=== PATIENT | female | born 1975 | race Caucasian/White ===

== ENCOUNTER 2018-09-09 07:21 | Observation (INO) | payer OTHER, SELFPAY ==
[2018-09-09] VITALS (13 sets, daily range): BP systolic 158–185; BP diastolic 92–107; PULSE 67–79; RESP 14–17; TEMP 36.3–36.8; O2SAT 96–99; BMI 52.0; BMI 52.4
--- NOTE | 2018-09-09 07:38 | RAD_ITS ---
STUDY: X-RAY CHEST REASON FOR EXAM: Female, 43 years old. Left-sided upper extremity weakness. TECHNIQUE: Single AP portable view of the chest. COMPARISON: None. FINDINGS: EKG electrodes are seen. The lungs are clear and expanded. There is no demonstrated pleural abnormality. Normal size heart. Normal mediastinum and dolly. Normal visualized pulmonary arteries. Normal visualized aortic arch and descending thoracic aorta. Normal visualized thoracic spine. Normal visualized ribs, clavicles, and shoulders. There is no demonstrated abnormality of the visualized soft tissue structures of the upper abdomen. RAD/Chest 1 View IMPRESSION: Normal x-ray examination of the chest. Electronically Signed: Bear Vu, at 9:09 EDT , Service support ,
--- NOTE | 2018-09-09 07:38 | CT_ITS ---
STUDY: CTA NECK WITH CONTRAST REASON FOR EXAM: Female, 43 years old. RADIATION DOSAGE (If Supplied By Facility): CTDIvol = ( 28.42 ) mGy, DLP = ( 1599.63 ) mGycm TECHNIQUE: CT angiography with multi-detector data acquisition was performed from the aortic arch to the skull base following intravenous administration of 100 IV Isovue 370. MIP images were reconstructed from the axial data set. Post-processing of the angiographic images was performed, with multiplanar reformation and 3D reconstruction. Individualized dose optimization techniques were used for this CT. COMPARISON: None. FINDINGS: There is a 1.4 cm x 1.4 cm hypodense nodule with peripheral calcification in the right lobe of thyroid. AORTIC ARCH: Normal visualized aortic arch. Normal origins of the brachiocephalic, left common carotid, and left subclavian arteries. RIGHT CAROTID ARTERIES: Normal right common carotid artery (CCA). Normal right common carotid bulb. Normal origin of the right internal carotid (ICA) artery without a hemodynamically significant stenosis. Normal visualized cervical portion of the right internal carotid artery. Normal origin of the right external carotid artery (ECA). LEFT CAROTID ARTERIES: Normal left common carotid artery (CCA). Normal left common carotid bulb. Normal origin of the left internal carotid (ICA) artery without a hemodynamically significant stenosis. Normal visualized cervical portion of the left internal carotid artery. Normal origin of the left external carotid artery (ECA). VERTEBRAL ARTERIES: Normal bilateral vertebral arteries. CT/CTA Neck W/WO Contrast IMPRESSION: Normal bilateral cervical carotid and vertebral arteries. Electronically Signed: Bear Vu, at 9:09 EDT , Service support ,
--- NOTE | 2018-09-09 07:38 | EKG12_ITS ---
Test Reason : NEURO SX Blood Pressure : / mmHG Vent. Rate : 066 BPM Atrial Rate : 066 BPM P-R Int : 156 ms QRS Dur : 100 ms QT Int : 420 ms P-R-T Axes : 023 021 014 degrees QTc Int : 440 ms Normal sinus rhythm Normal ECG Confirmed by MARIAN BA ([id number]), editor producer CHING YODER ([id number]) on 09/11/2018 8:42:59 AM Referred By: JAKOB Confirmed By:MARIAN BA
--- NOTE | 2018-09-09 07:38 | CT_ITS ---
STUDY: CTA OF THE BRAIN REASON FOR EXAM: Female, 43 years old. One-month history of a numbness and weakness. Difficulty with speech. RADIATION DOSAGE (If Supplied By Facility): CTDIvol = ( 28.42 ) mGy, DLP = ( 1599.63 ) mGycm TECHNIQUE: CT angiography was performed with a multi-detector CT scanner. Data acquisition was obtained from the skull base through the vertex following intravenous administration of 100 IV Isovue 370. MIP images were reconstructed from the axial data set. Post-processing of the angiographic images was performed, with multiplanar reformation and 3D reconstruction. Individualized dose optimization techniques were used for this CT. COMPARISON: None. FINDINGS: There is a 1 cm x 1.3 cm hypodense nodule with peripheral calcification in the right lobe of the thyroid gland. Normal bilateral petrous carotid arteries. There is calcified plaque formation of the right cavernous carotid artery, without a cross-sectional luminal stenosis. Normal left cavernous carotid artery with a normal supraclinoid bifurcation. Normal right A1 segments of the anterior cerebral artery. Normal left A1 segments of the anterior cerebral artery. Normal intact anterior communicating artery (ACOM). Normal bilateral A2 segments of the anterior cerebral arteries. Normal right M1 and M2 segments of the middle cerebral arteries, with a normal M1 bifurcation. Normal left M1 and M2 segments of the middle cerebral arteries, with a normal M1 bifurcation. Normal right posterior communicating artery (PCOM). Normal left posterior communicating artery (PCOM). Normal bilateral vertebral arteries. Normal basilar artery with a normal basilar bifurcation. The visualized bilateral superior cerebellar (SCA) arteries are normal. Normal bilateral P1, P2 and visualized P3 segments of the posterior cerebral arteries. There is no demonstrated aneurysm of the [place]. There is no demonstrated abnormality of the visualized brain. IMPRESSION: Normal [place] without a demonstrated aneurysm or hemodynamically significant stenosis. Electronically Signed: Bear Vu, at 9:07 EDT , Service support , STUDY: CT BRAIN WITHOUT CONTRAST REASON FOR EXAM: Female, 43 years old. Numbness and weakness. Slurred speech. RADIATION DOSAGE (If Supplied By Facility): CTDIvol = ( 25 ) mGy, DLP = ( 1599.63 ) mGycm TECHNIQUE: Transaxial CT imaging of the brain was performed without administration of intravenous contrast material. Individualized dose optimization techniques were used for this CT. COMPARISON: No relevant priors. FINDINGS: Normal soft tissue structures. Normal calvarium. Normal size ventricles and extra-axial spaces for the patient's age. Normal white matter tracts of the cerebral hemispheres. Normal basal ganglia and thalami. Normal brainstem. Normal cerebellum. There is no intracranial hemorrhage. There are no findings of an acute ischemic infarction. Normal visualized paranasal sinuses. CT/CTA Head W/WO Contrast IMPRESSION: Normal unenhanced CT scan of the brain. Electronically Signed: Bear Vu, at 9:07 EDT , Service support ,
--- NOTE | 2018-09-09 07:40 | ED.RN ---
pt reports intermittent sx for about a month. difficulty speeaking/getting worsd out states i know what i want to say but its like my tongue isnt working. last night started with left arm heaviness, feels swollen per pt and harder to use.
[2018-09-09 07:55] LABS: Bedside Glucose 118 mg/dL (70-110)
[2018-09-09 08:01] LABS: Absolute Lymphocyte Count 2.05 X10^3/ul (0.83-4.51); Absolute Neutrophil Count 4.3 X10^3/uL (2.0-7.7); Basophil# 0.04 X10^3/uL; Basophil% 0.6 % (0-1); Eosinophils% 4.2 % (0-5); Hematocrit 40.2 % (37-47); Hemoglobin 13.2 g/dl (12.0-15.0); Lymphocyte # 2.05 X10^3/ul (4.0); Lymphocyte % 28.7 % (19-41); Mean Corp Hgb Conc 32.8 g/gl (32-36); Mean Corpuscular Hgb 28.2 pg (27.0-32.0); Mean Corpuscular Volume 85.9 fL (81-99); Mean Platelet Vol. 10.5 fl (6.2-12.0); Monocyte# 0.45 X10^3/uL; Monocyte% 6.3 % (0-10); Neutrophil # 4.29 X10^3/uL (2.7-7.7); Neutrophil % 60.1 % (47-70); Platelet Count 225 K/mm3 (150-450); RBC Distribution Width CV 14.3 % (11.6-14.6); RBC Distribution Width SD 44.9 fl (35.1-43.9); Red Blood Count 4.68 M/mm3 (4.2-5.4); White Blood Count 7.1 K/mm3 (4.4-11.0)
[2018-09-09 08:02] LABS: POSITIVE COUNT NO; POSITIVE DIFFERENTIAL NO; POSITIVE MORPHOLOGY NO
[2018-09-09 08:08] LABS: Prothrombin Time (Protime)PT. 13.1 SECONDS (11.7-14.9)
[2018-09-09 08:18] LABS: Anion Gap 6 (5-15); BUN 15 mg/dL (7-18); BUN/Creat Ratio 24.4 RATIO (10-20); Calcium,Total 8.1 mg/dL (8.5-10.1); Chloride 106 mmol/L (98-107); Creatinine, Serum 0.61 mg/dL (0.55-1.02); EST Glomerular Filtration Rate 112 mL/min (>60); Est Glom Filt Rate - Afr Amer 135 mL/min (>60); Estimated Creatinine Clearance 87.88 ml/min; Glucose 127 mg/dL (74-106); Potassium 3.8 mmol/L (3.5-5.1); Sodium Level 138 mmol/L (136-145)
--- NOTE | 2018-09-09 09:01 | ED.DCSUM_ITS ---
- ER Visit Summary Date of Service: 09/09/18 Chief Complaint: [Weakness left arm and difficulty with speech] History of Present Illness: The patient is a 43 F [presents the emergency department with symptoms that have worsened since last evening. Patient states that actually over the course the last month she has had symptoms off and on of left arm numbness and weakness intermittently. Patient states at times it feels like her tongue gets really thick and she can see the words that she is thinking of. She denies any falls or head injuries. She denies any vision changes. Patient does complain of numbness to the left hand. She denies any chest pain or shortness of breath. She has minimal headache at this time. No history of migraines. Patient does have history of hypertension.] Physical Examination: [HEENT-PERRLA, EOMI. Cranial nerves II through XII grossly intact. TMs clear. Mucous membranes moist. No adenopathy. Cardiovascular-regular rate and rhythm without murmur or ectopy Lungs-clear to auscultation, chest wall stable without crepitus or subcu emphysema Abdomen-normoactive bowel sounds, soft, nontender, no rebound or rigidity, no peritoneal signs. Neuro exam-NIH stroke scale was a 1 due to some decreased sensation to the left arm compared to the right. [id number] and heel ramon testing within normal limits, negative Romberg, negative pronator, fundi benign. Extremities-intact ?4, normal range of motion, normal pulses, atraumatic] Test Results: [EKG obtained arrival shows sinus rhythm with a ventricular rate of 66 bpm with no acute ST segment changes. CBC with differential is normal. Chemistries normal. Troponin less than 0.015. INR was 1.0. PTT was 24.] CT of the brain without contrast was unremarkable. CTA of the head and neck was normal. Emergency Department Course and Treatment: [Patient will be admitted for further work-up and evaluation of her symptoms. Cannot rule out TIA versus complex migraine versus MS versus hypertension related symptoms versus other.] Treatment Plan: [Admit] Disposition: [Admit] Impression: [TIA Paresthesias] This note was generated with [employer] software. It may contain incorrect words, spelling, and punctuation that were not noted in review of the chart prior to signing ED Disposition - Plan for ED Patient: Referrals: Eddie Pearson MD [Primary Care Provider] -
--- NOTE | 2018-09-09 09:50 | ECHOD_ITS ---
Reason For Study: TIA/CVA Procedure This was a 2D Doppler, Color Flow transthoracic echocardiogram. The exam was of adequate technical quality. Exam performed portable in patient room. Left Ventricle Normal LV size. Left ventricular systolic function is normal. The estimated ejection fraction is 60 %. No evidence for diastolic dysfunction. No regional wall motion abnormalities noted. Right Ventricle Normal RV size. Normal systolic function. Atria The left atrium is mildly enlarged. Normal right atrium. No doppler evidence for ASD. Bubble contrast study negative for right to left interatrial shunt. Mitral Valve There is no mitral annular calcification. Normal mitral valve. Mild (1+) mitral valve insufficiency. Tricuspid Valve Normal tricuspid valve. Trivial tricuspid valve insufficiency. Aortic Valve Trisinus/trileaflet aortic valve. Normal aortic valve. Pulmonic Valve The pulmonic valve is not well visualized. Trivial pulmonic valve insufficiency. Great Vessels Normal sized aortic root. Pericardium/Pleural No pericardial effusion. Medication Performed a rapid injection of agitated mix of 9 cc saline and 1cc air to assess for atrial septal defect. MMode/2D Measurements & Calculations LVIDd: 5.0 cm IVSd: 1.2 cm Ao root diam: 3.1 cm LVIDs: 3.6 cm LVPWd: 1.2 cm RVDd: 3.5 cm FS: 28.5 % LAV(MOD-bp): 89.6 ml LA A4 area: 24.9 cm2 LA dimension(2D): 4.0 cm LAV(MOD-bp) Indexed: 41.4 ml/m2 LAV(MOD-sp2): 88.8 ml LAV(MOD-sp4): 87.9 ml RA A4 area: 16.4 cm2 Time Measurements MV dec time: 0.20 sec Doppler Measurements & Calculations MV E max dominic: 93.4 cm/sec Lat Peak E' Dominic: 13.9 cm/sec Med Peak E' Dominic: 9.1 cm/sec MV A max dominic: 72.4 cm/sec E/E' lat: 6.7 E/E' med: 10.2 MV E/A: 1.3 Ao V2 max: 143.3 cm/sec LV V1 max: 111.8 cm/sec PA V2 max: 93.0 cm/sec Ao max P.2 mmHg LV V1 max P.0 mmHg Interpretation Summary Left ventricular systolic function is normal. The estimated ejection fraction is 60 %. The left atrium is mildly enlarged. Mild (1+) mitral valve insufficiency. Trivial tricuspid valve insufficiency. Trivial pulmonic valve insufficiency. No evidence for diastolic dysfunction. Ordering Physician: Maximino Gonzalez Referring Physician: Eddie Pearson Performed By: Sully Toscano RDCS, RVT
[2018-09-09] MEDS: Aspirin 325 MG Tablet PO (10:50)
--- NOTE | 2018-09-09 11:17 | MRI_ITS ---
We are attempting to reach an attending provider to discuss findings. An addendum with communication details will be sent when the communication is complete. STUDY: MRI BRAIN WITH AND WITHOUT CONTRAST REASON FOR EXAM: Female, 43 years old. Left sided weakness and slurred speech TECHNIQUE: Standardized multiplanar fat and water weighted pulse sequences were obtained. 25 IV Dotarem was administered for the contrast portion of the examination. COMPARISON: None. FINDINGS: There are multiple regions of restricted diffusion throughout the right frontal, parietal and posterior lateral occipital lobes cortical and subcortical white matter, the largest of these is in the right occipital lobe measuring approximately 2.2 x 2.6 cm. There is corresponding FLAIR signal hyperintensity. These all correspond to the right MCA vascular distribution. Normal size of the ventricles and extra-axial spaces for the patient's age. Normal white matter tracts of the supratentorial brain. Normal T2* images of the brain without demonstrated susceptibility artifact. There is no demonstrated hemosiderin stain. Normal bilateral basal ganglia. Normal thalami. There is no extra-axial fluid accumulation. Normal flow voids within the major intracranial circulation suggesting patency by spin echo criteria. Normal venous enhancement. There is no enhancing intra-axial or extra-axial abnormality. Normal sella turcica, pituitary gland, infundibular stalk, optic chiasm and hypothalamus. Normal tectal plate and pineal gland. Normal midbrain, rachel and medulla. Normal cerebellum. Normal basal cisterns. Normal bilateral temporal bones. Normal bilateral internal auditory canals. No demonstrated orbital abnormality, within the constraints of a routine brain study. Normal visualized paranasal sinuses. Normal calvarium and skull base. Normal visualized soft tissue structures. Normal visualized upper cervical spine. 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 Question A. fib. No enhancing abnormality. Electronically Signed: Helena France, at 15:18 EDT Tel , Service support ,
--- NOTE | 2018-09-09 11:18 | PCM.HP.STD ---
Problem List (1) Left-sided weakness Status: Acute History of Present Illness Date of Admission: 09/09/18 Chief Complaint: left sided weakness. garbled speech. The patient is a 43 year old F who over the past month has been having intermittent left-sided weakness and garbled speech. Last night it was much more pronounced and did persist until today. Patient was just unable to speak, knowing the words that she would need to speak when unable to actually articulate them. Patient was left-sided weakness in her left arm and leg. Denies any concomitant headache. Was evaluated emergency room, underwent CAT scans that were unremarkable. The hospitalist service was asked to evaluate the patient for further stroke evaluation. [] Past Medical History Allergies No Known Allergies Allergy (Verified 09/09/18 07:22) Surgical History: no surgical history Psychiatric History: No pertinent psych hx Lives: Spouse/ Significant Other Smoking Status: Never smoker Tobacco Use: Non-smoker Alcohol: None - *Family History Maternal History Items: - - No stroke Review of Systems Constitutional: Denies: Anorexia, Chills, Fever Eyes: Denies: Blurred vision, Double vision HEENT: Denies: Head Aches, Sinus Congestion, Sinus Drainage Cardiovascular: Denies: Chest Pain, Palpitations Respiratory: Denies: Cough, Shortness of breath at rest, Sputum production Gastrointestinal: Denies: Abdominal Pain, Nausea, Vomiting Genitourinary: Denies: Dysuria Musculoskeletal: Denies: Joint Pain, Joint Tenderness Skin: Denies: Rash, Wounds Neurological: Reports: Focal weakness, Numbness, Tingling Psychiatric: Denies: Anxiety, Depression Hematologic/ Lymphatic: Denies: Easy Bruising, Easy Bleeding, Hx of blood clot Comment: A 10 point review of systems were negative except as mentioned in the history of present illness and the other review of systems. VTE Information - Inpt Only VTE Present on Admission: No VTE Mechan Device Prophylaxis: None VTE Pharm Prophylaxis ordered?: No Reason prophylaxis not ordered:: Procedure Not Indicated Patient Problems: Active and Suspected Problems Left-sided weakness (Acute) - Physical Exam General: Alert, Cooperative, No apparent distress HEENT: Atraumatic, Normocephalic Oral: Moist Mucosa, No Gingival or Mucosal Lesions/ Ulcerations Neck: No Nodes, Thyroid Normal Size and Texture Cardiovascular: Regular rate, Regular Rhythm, Normal S1, Normal S2, No murmurs Abdomen: Bowel Sounds Present, Soft, Non Tender, Non-Distended, Obese Extremities: No clubbing, No edema, No Calf Tenderness Skin: No rashes, No breakdown Musculoskeletal: No Tenderness to Palpation of Joints or Extremities, No Muscle Wasting Neurological: Cranial nerves II-XII grossly intact, - - Muscle strength 5-5 in right upper and right lower extremity, 4-5 in the left upper and left lower extremity. Ataxia with the left upper extremity. Coordination intact in the right upper extremity. Psych/Mental Status: Normal Affect, Appropriate Vital Signs Temp Pulse Resp BP Pulse Ox 36.6 C 67 16 160/92 H 99 09/09/18 10:01 09/09/18 10:01 09/09/18 10:01 09/09/18 10:09/09/18 10:01 Oxygen Delivery Method Room Air Weight: 125.9 kg Body Mass Index (BMI) 52.4 Finger Stick Blood Glucose 118 Laboratory Tests Past 24 Hrs 09/09/18 09/09/18 09/09/18 07:35 07:35 07:35 WBC 7.1 RBC 4.68 Hgb 13.2 Hct 40.2 MCV 85.9 MCH 28.2 MCHC 32.8 RDW 14.3 RDW Differential 44.9 H Plt Count 225 MPV 10.5 Immature Gran % (Auto) 0.100 Neut % (Auto) 60.1 Lymph % (Auto) 28.7 [place] % (Auto) 6.3 Eos % (Auto) 4.2 Baso % (Auto) 0.6 Absolute Neuts (auto) 4.3 Absolute Lymphs (auto) 2.05 Total Counted Not Reportable PT 13.1 INR 1.0 APTT 24.0 L Sodium 138 Potassium 3.8 Chloride 106 Carbon Dioxide 26.0 Anion Gap 6 BUN 15 Creatinine 0.61 Estim Creat Clear Calc 87.88 Est GFR (MDRD) Af Amer 135 Est GFR (MDRD) Non-Af 112 BUN/Creatinine Ratio 24.4 H Glucose 127 H Calcium 8.1 L Troponin I < 0.015 POC Glucose 09/09/18 07:49 POC Glucose 118 H Clinical Impression(s) from Imaging Studies Chest X-Ray 09/09/18 07:38 IMPRESSION: Normal x-ray examination of the chest. Electronically Signed: Bear Vu, at 9:09 EDT , Service support , Head CTA 09/09/18 07:38 IMPRESSION: Normal unenhanced CT scan of the brain. Electronically Signed: Bear Vu, at 9:07 EDT , Service support , Neck CTA 09/09/18 07:38 IMPRESSION: Normal bilateral cervical carotid and vertebral arteries. Electronically Signed: Bear Vu, at 9:09 EDT , Service support , Assessment/Plan All Active Problems Left-sided weakness (Acute) 1. Left her upper and lower extremity weakness, expressive aphasia. Concern is for a stroke Had CTA and neck CTA were unremarkable. Patient will have an MRI of the brain with and without contrast, 2D echocardiogram, physical, occupational and speech therapies. Await on final results of the MRI and patient's overall clinical picture before proceeding with additional studies or consultations. Symptoms have been waxing and waning without any obvious etiology. Patient is not endorsing any headaches so unlikely a migraine variant. 2. Hypertension: Unclear if this is chronic process or acute trigger if she would have a stroke in order to maintain a higher cerebral perfusion pressure. Monitor for now. 3. VTE prophylaxis: Low risk and not indicated as patient under observation status and length hospitalization anticipated be less than 48 hours. If that does change later point then VT prophylaxis will be initiated to give her risk profile changes. Code Visit OBSV E&M: 60351 Initial observation care L3
--- NOTE | 2018-09-09 11:23 | HP.PCM_ITS ---
Problem List (1) Left-sided weakness Status: Acute History of Present Illness Date of Admission: 09/09/18 Chief Complaint: left sided weakness. garbled speech. The patient is a 43 year old F who over the past month has been having intermittent left-sided weakness and garbled speech. Last night it was much more pronounced and did persist until today. Patient was just unable to speak, knowing the words that she would need to speak when unable to actually articulate them. Patient was left-sided weakness in her left arm and leg. Denies any concomitant headache. Was evaluated emergency room, underwent CAT scans that were unremarkable. The hospitalist service was asked to evaluate the patient for further stroke evaluation. [] Past Medical History Allergies No Known Allergies Allergy (Verified 09/09/18 07:22) Surgical History: no surgical history Psychiatric History: No pertinent psych hx Lives: Spouse/ Significant Other Smoking Status: Never smoker Tobacco Use: Non-smoker Alcohol: None - *Family History Maternal History Items: - - No stroke Review of Systems Constitutional: Denies: Anorexia, Chills, Fever Eyes: Denies: Blurred vision, Double vision HEENT: Denies: Head Aches, Sinus Congestion, Sinus Drainage Cardiovascular: Denies: Chest Pain, Palpitations Respiratory: Denies: Cough, Shortness of breath at rest, Sputum production Gastrointestinal: Denies: Abdominal Pain, Nausea, Vomiting Genitourinary: Denies: Dysuria Musculoskeletal: Denies: Joint Pain, Joint Tenderness Skin: Denies: Rash, Wounds Neurological: Reports: Focal weakness, Numbness, Tingling Psychiatric: Denies: Anxiety, Depression Hematologic/ Lymphatic: Denies: Easy Bruising, Easy Bleeding, Hx of blood clot Comment: A 10 point review of systems were negative except as mentioned in the history of present illness and the other review of systems. VTE Information - Inpt Only VTE Present on Admission: No VTE Mechan Device Prophylaxis: None VTE Pharm Prophylaxis ordered?: No Reason prophylaxis not ordered:: Procedure Not Indicated Patient Problems: Active and Suspected Problems Left-sided weakness (Acute) - Physical Exam General: Alert, Cooperative, No apparent distress HEENT: Atraumatic, Normocephalic Oral: Moist Mucosa, No Gingival or Mucosal Lesions/ Ulcerations Neck: No Nodes, Thyroid Normal Size and Texture Cardiovascular: Regular rate, Regular Rhythm, Normal S1, Normal S2, No murmurs Abdomen: Bowel Sounds Present, Soft, Non Tender, Non-Distended, Obese Extremities: No clubbing, No edema, No Calf Tenderness Skin: No rashes, No breakdown Musculoskeletal: No Tenderness to Palpation of Joints or Extremities, No Muscle Wasting Neurological: Cranial nerves II-XII grossly intact, - - Muscle strength 5-5 in right upper and right lower extremity, 4-5 in the left upper and left lower extremity. Ataxia with the left upper extremity. Coordination intact in the right upper extremity. Psych/Mental Status: Normal Affect, Appropriate Vital Signs Temp Pulse Resp BP Pulse Ox 36.6 C 67 16 160/92 H 99 09/09/18 10:01 09/09/18 10:01 09/09/18 10:01 09/09/18 10:09/09/18 10:01 Oxygen Delivery Method Room Air Weight: 125.9 kg Body Mass Index (BMI) 52.4 Finger Stick Blood Glucose 118 Laboratory Tests Past 24 Hrs 09/09/18 09/09/18 09/09/18 07:35 07:35 07:35 WBC 7.1 RBC 4.68 Hgb 13.2 Hct 40.2 MCV 85.9 MCH 28.2 MCHC 32.8 RDW 14.3 RDW Differential 44.9 H Plt Count 225 MPV 10.5 Immature Gran % (Auto) 0.100 Neut % (Auto) 60.1 Lymph % (Auto) 28.7 [place] % (Auto) 6.3 Eos % (Auto) 4.2 Baso % (Auto) 0.6 Absolute Neuts (auto) 4.3 Absolute Lymphs (auto) 2.05 Total Counted Not Reportable PT 13.1 INR 1.0 APTT 24.0 L Sodium 138 Potassium 3.8 Chloride 106 Carbon Dioxide 26.0 Anion Gap 6 BUN 15 Creatinine 0.61 Estim Creat Clear Calc 87.88 Est GFR (MDRD) Af Amer 135 Est GFR (MDRD) Non-Af 112 BUN/Creatinine Ratio 24.4 H Glucose 127 H Calcium 8.1 L Troponin I < 0.015 POC Glucose 09/09/18 07:49 POC Glucose 118 H Clinical Impression(s) from Imaging Studies Chest X-Ray 09/09/18 07:38 IMPRESSION: Normal x-ray examination of the chest. Electronically Signed: Bear Vu, at 9:09 EDT , Service support , Head CTA 09/09/18 07:38 IMPRESSION: Normal unenhanced CT scan of the brain. Electronically Signed: Bear Vu, at 9:07 EDT , Service support , Neck CTA 09/09/18 07:38 IMPRESSION: Normal bilateral cervical carotid and vertebral arteries. Electronically Signed: Bear Vu, at 9:09 EDT , Service support , Assessment/Plan All Active Problems Left-sided weakness (Acute) 1. Left her upper and lower extremity weakness, expressive aphasia. * Concern is for a stroke * Had CTA and neck CTA were unremarkable. * Patient will have an MRI of the brain with and without contrast, 2D echocardiogram, physical, occupational and speech therapies. * Await on final results of the MRI and patient's overall clinical picture before proceeding with additional studies or consultations. * Symptoms have been waxing and waning without any obvious etiology. Patient is not endorsing any headaches so unlikely a migraine variant. 2. Hypertension: Unclear if this is chronic process or acute trigger if she would have a stroke in order to maintain a higher cerebral perfusion pressure. Monitor for now. 3. VTE prophylaxis: Low risk and not indicated as patient under observation status and length hospitalization anticipated be less than 48 hours. If that does change later point then VT prophylaxis will be initiated to give her risk profile changes. Code Visit OBSV E&M: 94374 Initial observation care L3
[2018-09-09] MEDS: Atorvastatin Calcium 80 MG Tablet PO (21:32)
[2018-09-10] VITALS (10 sets, daily range): BP systolic 145–171; BP diastolic 81–92; PULSE 65–81; RESP 14–16; TEMP 36.6–36.9; O2SAT 96–100; BMI 52.4
[2018-09-10] MEDS: 0.9% NaCl Peripheral Flush Adult/Peds IV (05:34)
[2018-09-10 06:48] LABS: Cholesterol 160 mg/dL (200); High Density Lipoprotein 52 mg/dL; Triglycerides 98 mg/dL; Very Low Density Lipoprotein 20 mg/dL (5-40)
[2018-09-10] MEDS: Aspirin 81 MG TAB.CHEW PO (08:03)
--- NOTE | 2018-09-10 10:39 | PCM.CONS.GEN ---
Reason for Consult Date of Consultation: 09/10/18 Reason for Consultation: cva History of Present Illness: The patient is a 43 year old F right handed white female with history of htn, 150-160 at home, no other health problems or tob or etoh use, over the past month or so has had intermittent left hand symptoms, the worse of which occurred saturday pm, came to the hospital tues am. reports left arm, leg, and speech was affected intermittently. history of snoring. Per admit note: The patient is a 43 year old F who over the past month has been having intermittent left-sided weakness and garbled speech. Last night it was much more pronounced and did persist until today. Patient was just unable to speak, knowing the words that she would need to speak when unable to actually articulate them. Patient was left-sided weakness in her left arm and leg. Denies any concomitant headache. Was evaluated emergency room, underwent CAT scans that were unremarkable. The hospitalist service was asked to evaluate the patient for further stroke evaluation. Past Medical History Allergies No Known Allergies Allergy (Verified 09/09/18 07:22) Surgical History: no surgical history Psychiatric History: No pertinent psych hx Lives: Spouse/ Significant Other Smoking Status: Never smoker Tobacco Use: Non-smoker Alcohol: None - *Family History Maternal History Items: - - No stroke Review of Systems Constitutional: Denies: Chills, Fever, Weight Change HEENT: Denies: Head Aches, Sinus Congestion, Sinus Drainage Cardiovascular: Denies: Chest Pain, Palpitations Respiratory: Denies: Cough, Shortness of breath at rest, Sputum production Gastrointestinal: Denies: Abdominal Pain, Nausea, Vomiting Genitourinary: Denies: Dysuria Musculoskeletal: Denies: Joint Pain, Joint Tenderness Skin: Denies: Rash, Wounds Neurological: Denies: Numbness, Tingling, Focal weakness Psychiatric: Denies: Anxiety, Depression, Homicidal Ideations, Suicidal Ideations Hematologic/ Lymphatic: Denies: Easy Bruising, Easy Bleeding Patient Problems: Active and Suspected Problems Left-sided weakness (Acute) - Physical Exam General: Alert, Oriented x3, Cooperative HEENT: Atraumatic, PERRLA, EOMI, Normocephalic Neck: Supple, No JVD, Negative Carotid Bruits Lungs: Clear to auscultation, Normal air movement Cardiovascular: Regular rate, No murmurs Abdomen: Bowel Sounds Present, Soft, Non Tender Extremities: No edema, Capillary Refill Less than 3 Seconds Skin: No rashes, No breakdown Musculoskeletal: No Tenderness to Palpation of Joints or Extremities Neurological: Cranial nerves II-XII grossly intact, - - m9ild left drift nihss 1 Psych/Mental Status: Normal Affect, Appropriate Vital Signs Temp Pulse Resp BP Pulse Ox 36.6 C 73 16 145/83 H 100 09/10/18 10:00 09/10/18 10:00 09/10/18 10:00 09/10/18 10:00 09/10/18 10:00 Oxygen Delivery Method Room Air Weight: 125.9 kg Body Mass Index (BMI) 52.4 Finger Stick Blood Glucose 118 Intake and Output for Last 24 Hours 09/08/18 09/09/18 09/10/18 23:59 23:59 23:59 Intake Total 900 / 900 100 / 100 Balance 900 / 900 100 / 100 Laboratory Tests Past 24 Hrs 09/10/18 05:35 Triglycerides 98 Cholesterol 160 LDL Cholesterol 88 VLDL Cholesterol 20 HDL Cholesterol 52 MRI reviewed, acute right MCA distribution infarct, scattered and overall small infarcts and load. cta no stenosis echo nl by report Current Medications Acetaminophen 650 mg 09/09/18 09:50 Tylenol PO Q6H PRN PRN Mild pain 1-3/Temp > 100.7 F Aspirin 81 mg 09/10/18 08:00 09/10/18 08:03 Aspirin, Baby PO 81 mg DAILY@0800 EVERT Administration Atorvastatin Calcium 80 mg 09/09/18 22:00 09/09/18 21:32 Lipitor PO 80 mg QHS EVERT Administration Dextrose 0 gm 09/09/18 09:50 D50w Syringe IV Glucagon 1 mg 09/09/18 09:50 IM .X1 PRN Hypoglycemia Ondansetron HCl 4 mg 09/09/18 09:50 Zofran IV Q8H PRN PRN NAUSEA/VOMITING Assessment/Plan All Active Problems Left-sided weakness (Acute) right mca infarct, only known risk factor is htn, poss shelia outpt psg rx htn pt/ot/sp dc if ambulating safely outpt event monitor asa daily statin
--- NOTE | 2018-09-10 12:12 | PCM.DC ---
- Discharge Diagnoses Current Active Problems: Current Active and Chronic Problems Left-sided weakness (Acute) You will use the following diet at home:: Cardiac Your food should be the consistency of: Regular Your liquids should be the consistency of: Regular/Thin Discharge Activity: Return to Normal Activity Call your doctor if you observe: - - increased weakness, trouble speaking Allergies/Adverse Reactions: Allergies No Known Allergies Allergy (Verified 09/09/18 07:22) Medications to take at Discharge Amlodipine [Norvasc] 2.5 mg PO DAILY #30 tablet 09/10/18 Aspirin [Aspirin, Baby] 81 mg PO DAILY@0800 tab.chew 09/10/18 Atorvastatin Calcium [Lipitor] 80 mg PO QHS #30 tablet 09/10/18 The following prescriptions were given: Amlodipine [Norvasc] 2.5 mg PO DAILY #30 tablet Atorvastatin Calcium [Lipitor] 80 mg PO QHS #30 tablet Orders to be completed after discharge: 30-Day Event Recorder [[facility]] Location: None Selected Primary Care Physician: Eddie Pearson MD [Primary Care Provider] - Within 2 Weeks Test Results: Test results from this visit will be discussed in further detail at your follow-up appointment, if applicable. Please Follow Up With: Carlos Schneider MD - Neurology. When: 4-6 weeks Proposed Discharge Date: 09/10/18
--- NOTE | 2018-09-10 12:17 | DCINST_ITS ---
- Discharge Diagnoses Current Active Problems: Current Active and Chronic Problems Left-sided weakness (Acute) You will use the following diet at home:: Cardiac Your food should be the consistency of: Regular Your liquids should be the consistency of: Regular/Thin Discharge Activity: Return to Normal Activity Call your doctor if you observe: - - increased weakness, trouble speaking Allergies/Adverse Reactions: Allergies No Known Allergies Allergy (Verified 09/09/18 07:22) Medications to take at Discharge Amlodipine [Norvasc] 2.5 mg PO DAILY #30 tablet 09/10/18 Aspirin [Aspirin, Baby] 81 mg PO DAILY@0800 tab.chew 09/10/18 Atorvastatin Calcium [Lipitor] 80 mg PO QHS #30 tablet 09/10/18 The following prescriptions were given: Amlodipine [Norvasc] 2.5 mg PO DAILY #30 tablet Atorvastatin Calcium [Lipitor] 80 mg PO QHS #30 tablet Orders to be completed after discharge: 30-Day Event Recorder [[facility]] Location: None Selected Primary Care Physician: Eddie Pearson MD [Primary Care Provider] - Within 2 Weeks Test Results: Test results from this visit will be discussed in further detail at your follow- up appointment, if applicable. Please Follow Up With: Carlos Schneider MD - Neurology. When: 4-6 weeks Proposed Discharge Date: 09/10/18
--- NOTE | 2018-09-10 12:17 | PCM.DC.SUM ---
Discharge Date and Diagnosis - Problem List Patient Problems: Active and Suspected Problems CVA (cerebral vascular accident) (Acute) Left-sided weakness (Acute) Date of Admission: 09/09/18 Date of Discharge: 09/10/18 - Primary Discharge Diagnosis Active and Suspected Problems CVA (cerebral vascular accident) (Acute) Left-sided weakness (Acute) Hospital Course and Treatment Imaging Results: Clinical Impression(s) from Imaging Studies Chest X-Ray 09/09/18 07:38 IMPRESSION: Normal x-ray examination of the chest. Electronically Signed: Bear Vu, at 9:09 EDT , Service support , Head CTA 09/09/18 07:38 IMPRESSION: Normal unenhanced CT scan of the brain. Electronically Signed: Bear Vu, at 9:07 EDT , Service support , Neck CTA 09/09/18 07:38 IMPRESSION: Normal bilateral cervical carotid and vertebral arteries. 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 Question A. fib. No enhancing abnormality. 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 Question A. fib. No enhancing abnormality. N.B. : The above information has been verbally conveyed by Helena France to Dr. Lisa MD, on 09/09/2018 15:27:42 (ET). Electronically Signed: Helena France, at 15:18 EDT Tel , Service support , Carlos Schneider MD: neurology. Operations: None Procedures: None Summary of Care Provided: The patient is a 43 year old F resents with expressive aphasia and left upper extremity weakness. Patient underwent a work-up that showed right MCA MCA distribution strokes. Concerning for embolic. No evidence of atrial fibrillation was identified. Patient started on aspirin as well as high intensity statin with 80 mg of atorvastatin. Patient blood pressure has been elevated and patient be started on 2.5 mg of amlodipine and to further assist with blood pressure control. Patient was very hesitant about starting the atorvastatin because she prefers to go natural. Advised patient that it is up to her discretion to take medications that we simply make the recommendations for the medications for her to take but she may put herself at risk by not being compliant with medications. She did not confirm or deny that she is going to take the atorvastatin patient will receive a prescription for such as well as amlodipine. Aspirin is [id number]. Patient follow-up neurology in the future and will require a 30-day event monitor to see if she does have any arrhythmia that could be the nidus for her stroke. Additionally, she will need to have a polysomnogram which will be no further facilitated by neurology as outpatient. [] Patient Problems: Active and Suspected Problems CVA (cerebral vascular accident) (Acute) Left-sided weakness (Acute) - Physical Exam General: Alert, No apparent distress HEENT: Atraumatic, Normocephalic Neurological: - - Still with a slight weakness in the left upper extremity as compared to the right. Vital Signs Temp Pulse Resp BP Pulse Ox 36.6 C 81 16 145/83 H 100 09/10/18 10:00 09/10/18 11:27 09/10/18 10:00 09/10/18 10:09/10/18 10:00 Oxygen Delivery Method Room Air Weight: 125.9 kg Body Mass Index (BMI) 52.4 Finger Stick Blood Glucose 118 Intake and Output for Last 24 Hours 09/08/18 09/09/18 09/10/18 23:59 23:59 23:59 Intake Total 900 / 900 340 / 340 Balance 900 / 900 340 / 340 Laboratory Tests Past 24 Hrs 09/10/18 05:35 Triglycerides 98 Cholesterol 160 LDL Cholesterol 88 VLDL Cholesterol 20 HDL Cholesterol 52 Discharge Diet: Low fat/ Low Cholesterol Discharge Activity: Return to Normal Activity Call your doctor if you observe: - - increased weakness, trouble speaking Home Medications: Medications to take at Discharge Amlodipine [Norvasc] 2.5 mg PO DAILY #30 tablet 09/10/18 Aspirin [Aspirin, Baby] 81 mg PO DAILY@0800 tab.chew 09/10/18 Atorvastatin Calcium [Lipitor] 80 mg PO QHS #30 tablet 09/10/18 Following Prescrptions Were Given to Patient: Amlodipine [Norvasc] 2.5 mg PO DAILY #30 tablet Atorvastatin Calcium [Lipitor] 80 mg PO QHS #30 tablet Other Amb Orders: 30-Day Event Recorder [[facility]] Location: None Selected Occupational Therapy Eval Time Frame: 1 Week, Location: None Selected Primary Care Physician: Eddie Pearson MD [Primary Care Provider] - Within 2 Weeks Please Follow Up With: Carlos Schneider MD - Neurology. When: 4-6 weeks Disposition: Home Minutes spent on discharge:: 32 Patient Condition:: Good Medical Necessity - Tobacco Use Smoking Status: Never smoker Tobacco Use: Non-smoker Meaningful Use Info Meaningful Use Diagnoses (Choose all that apply): Ischemic CVA - CVA Therapy Assessed for PT,OT and/or ST?: Yes - Ischemic Stroke Antithrombotic order at d/c?: Yes Dx of Atrial fib/flutter?: No Statins at discharge?: Yes Primary Dx Acute Ischemic CVA?: Yes IV tPA ordered during stay?: No Reason IV t-PA not ordered: Procedure not Indicated Code Visit OBSV E&M: 76410 Observation care discharge
--- NOTE | 2018-09-10 12:20 | DS.PCM_ITS ---
Discharge Date and Diagnosis - Problem List Patient Problems: Active and Suspected Problems CVA (cerebral vascular accident) (Acute) Left-sided weakness (Acute) Date of Admission: 09/09/18 Date of Discharge: 09/10/18 - Primary Discharge Diagnosis Active and Suspected Problems CVA (cerebral vascular accident) (Acute) Left-sided weakness (Acute) Hospital Course and Treatment Imaging Results: Clinical Impression(s) from Imaging Studies Chest X-Ray 09/09/18 07:38 IMPRESSION: Normal x-ray examination of the chest. Electronically Signed: Bear Vu, at 9:09 EDT , Service support , Head CTA 09/09/18 07:38 IMPRESSION: Normal unenhanced CT scan of the brain. Electronically Signed: Bear Vu, at 9:07 EDT , Service support , Neck CTA 09/09/18 07:38 IMPRESSION: Normal bilateral cervical carotid and vertebral arteries. 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 Question A. fib. No enhancing abnormality. 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 Question A. fib. No enhancing abnormality. N.B. : The above information has been verbally conveyed by Helena France to Dr. Lisa MD, on 09/09/2018 15:27:42 (ET). Electronically Signed: Helena France, at 15:18 EDT Tel , Service support , Carlos Schneider MD: neurology. Operations: None Procedures: None Summary of Care Provided: The patient is a 43 year old F resents with expressive aphasia and left upper extremity weakness. Patient underwent a work-up that showed right MCA MCA distribution strokes. Concerning for embolic. No evidence of atrial fibrillation was identified. Patient started on aspirin as well as high i ntensity statin with 80 mg of atorvastatin. Patient blood pressure has been elevated and patient be started on 2.5 mg of amlodipine and to further assist with blood pressure control. Patient was very hesitant about starting the atorvastatin because she prefers to go natural. Advised patient that it is up to her discretion to take medications that we simply make the recommendations for the medications for her to take but she may put herself at risk by not being compliant with medications. She did not confirm or deny that she is going to take the atorvastatin patient will receive a prescription for such as well as amlodipine. Aspirin is [id number]. Patient follow-up neurology in the future and will require a 30-day event monitor to see if she does have any arrhythmia that could be the nidus for her stroke. Additionally, she will need to have a polysomnogram which will be no further facilitated by neurology as outpatient. [] Patient Problems: Active and Suspected Problems CVA (cerebral vascular accident) (Acute) Left-sided weakness (Acute) - Physical Exam General: Alert, No apparent distress HEENT: Atraumatic, Normocephalic Neurological: - - Still with a slight weakness in the left upper extremity as compared to the right. Vital Signs Temp Pulse Resp BP Pulse Ox 36.6 C 81 16 145/83 H 100 09/10/18 10:00 09/10/18 11:27 09/10/18 10:00 09/10/18 10:09/10/18 10:00 Oxygen Delivery Method Room Air Weight: 125.9 kg Body Mass Index (BMI) 52.4 Finger Stick Blood Glucose 118 Intake and Output for Last 24 Hours 09/08/18 09/09/18 09/10/18 23:59 23:59 23:59 Intake Total 900 / 900 340 / 340 Balance 900 / 900 340 / 340 Laboratory Tests Past 24 Hrs 09/10/18 05:35 Triglycerides 98 Cholesterol 160 LDL Cholesterol 88 VLDL Cholesterol 20 HDL Cholesterol 52 Discharge Diet: Low fat/ Low Cholesterol Discharge Activity: Return to Normal Activity Call your doctor if you observe: - - increased weakness, trouble speaking Home Medications: Medications to take at Discharge Amlodipine [Norvasc] 2.5 mg PO DAILY #30 tablet 09/10/18 Aspirin [Aspirin, Baby] 81 mg PO DAILY@0800 tab.chew 09/10/18 Atorvastatin Calcium [Lipitor] 80 mg PO QHS #30 tablet 09/10/18 Following Prescrptions Were Given to Patient: Amlodipine [Norvasc] 2.5 mg PO DAILY #30 tablet Atorvastatin Calcium [Lipitor] 80 mg PO QHS #30 tablet Other Amb Orders: 30-Day Event Recorder [[facility]] Location: None Selected Occupational Therapy Eval Time Frame: 1 Week, Location: None Selected Primary Care Physician: Eddie Pearson MD [Primary Care Provider] - Within 2 Weeks Please Follow Up With: Carlos Schneider MD - Neurology. When: 4-6 weeks Disposition: Home Minutes spent on discharge:: 32 Patient Condition:: Good Medical Necessity - Tobacco Use Smoking Status: Never smoker Tobacco Use: Non-smoker Meaningful Use Info Meaningful Use Diagnoses (Choose all that apply): Ischemic CVA - CVA Therapy Assessed for PT,OT and/or ST?: Yes - Ischemic Stroke Antithrombotic order at d/c?: Yes Dx of Atrial fib/flutter?: No Statins at discharge?: Yes Primary Dx Acute Ischemic CVA?: Yes IV tPA ordered during stay?: No Reason IV t-PA not ordered: Procedure not Indicated Code Visit OBSV E&M: 88988 Observation care discharge
--- NOTE | 2018-09-10 13:03 | PHA.DC.MC ---
Pharmacy Service has performed discharge medication reconciliation and counseling for this patient. The patient's discharge medication list was reviewed for discrepancies and discrepancies were resolved. The patient was counseled on the following discharge medications and changes in medications for homegoing were reviewed. 1. ASPIRIN 81MT PO DAILYCM 2. AMLODIPINE 2.5MT PO DAILY 3. ATORVASTATIN 80MT PO QHS (GAVE INFORMATION, PATIENT DECIDED NOT TO TAKE MEDICATION AT THIS TIME) The Reason for Use, instructions for use, and potential side effects were reviewed for all new medications. The patient's questions regarding all of their medications were answered. The patient demonstrated some understanding but would benefit from further education and reinforcement. Home Medications Amlodipine [Norvasc] 2.5 mg PO DAILY #30 tablet 09/10/18 Aspirin [Aspirin, Baby] 81 mg PO DAILY@0800 tab.chew 09/10/18 Atorvastatin Calcium [Lipitor] 80 mg PO QHS #30 tablet 09/10/18
--- NOTE | 2018-09-10 13:34 | CASEMGMT ---
DANIKA did not complete PHQ-9 for Stroke as she left before DANIKA was able to see her. Umu OLSON MSW
[2018-09-11 16:43] LABS: ANTINUCLEAR ANTIBODIES DIRECT Negative (Negative)
[2018-09-15 16:06] LABS: Dilute Prothrombin Time (dPT) 42.2 sec (0.0-55.0); Dilute Russell Viper Venom 31.9 sec (0.0-47.0); PTT-LA 27.7 sec (0.0-51.9); Protein C Antigen 129 % (60-150); Protein C, Functional 137 % (73-180); Thrombin Time 18.4 sec (0.0-23.0)
[2018-09-16 09:36] LABS: Anti-Cardiolipin Ab, IgG, Qn < 9 GPL U/mL (0-14); Anti-Cardiolipin Ab, IgM, Qn < 9 MPL U/mL (0-12); Antithrombin 3 Function 105 % (75-135); Interpretation Comment: (.); Protein S, Free 105 % (57-157); Protein S, Funtional 70 % (63-140); Protein S, Total 79 % (60-150)
== END 2018-09-10 12:16 | disposition home or self-care (01) ==
LOC: ED 09:19 → PCU 09:49
PROVIDERS: Psychiatry & Neurology Neurology; Emergency Provider Emergency Medicine; Family Provider Family Medicine; PCP Family Medicine
DX: I63.9 Cerebral infarction, unspecified (principal); G83.24 Monoplegia of upper limb affecting left nondominant side; R47.01 Aphasia; I10 Essential (primary) hypertension; I69.393 Ataxia following cerebral infarction
CPT/HCPCS: 36415; 70496; 70498; 70553; 71045; 80048; 80061; 81241; 82962; 84484; 85025; 85300; 85302; 85303; 85305; 85306; 85610; 85730; 86038; 86147; 86225; 86235; 92523; 93005; 93306; 97161; 97166; 97530; 99218; 99285; A9575; J7030; Q9967; A4216; G0378

== ENCOUNTER → 2018-09-17 10:42 | Outpatient (REF) | payer OTHER, SELFPAY ==
[2018-09-10 09:00] VITALS: BMI 52.4
== END ==
LOC: CVS 10:42
PROVIDERS: Family Provider Family Medicine; PCP Family Medicine
DX: Z86.73 Personal history of transient ischemic attack (TIA), and cerebral infarction without residual deficits (principal)
CPT/HCPCS: 93270